=== PATIENT | male | born 1945 | race Caucasian/White ===

== ENCOUNTER → 2020-09-12 02:32 | Outpatient (CLI) | payer MEDICARE, SELFPAY ==
[2020-09-12 20:22] LABS: SARS-CoV-2 RNA PCR Negative
== END ==
PROVIDERS: PCP Family Medicine; Visit Provider Internal Medicine Gastroenterology
DX: Z01.812 Encounter for preprocedural laboratory examination (principal); Z20.822 Contact with and (suspected) exposure to COVID-19
CPT/HCPCS: C9803; U0003; U0005

== ENCOUNTER 2020-09-16 00:52 | Day surgery (SDC) | payer MEDICARE, SELFPAY ==
[2020-09-03 09:48] VITALS: BMI 25.7
--- NOTE | 2020-09-16 07:22 | PM.HPGS ---
History of Present Illness History of Present Illness Consent: Risks, benefits, and alternatives have been discussed and questions answered. Patient agrees to proceed with procedure. Chief complaint: neoplasm screening Narrative: Kirill Javier is a 75 year old male Review of Systems Review of Systems: All systems reviewed & are unremarkable except as noted in HPI and below PMFSH Past Medical History Medical History BMI 25.0-25.9,adult Hyperlipidemia Hypertension Screen for colon cancer Screening for prostate cancer Type 2 diabetes mellitus without complications Social History Social History Smoking packs per day: 1 Smoking cigarettes per day: 20.0 Years smoked: 15 Smoking pack-years: 15.00 Smoking status: Former smoker Tobacco type: cigarettes Smoking end date: 06/19/80 Alcohol intake: never Living arrangements: with family Gender identity (if verbalized by the patient): Male Spiritual care concerns: No Meds Home Medications and Allergies Home Medications Medication Instructions Recorded Confirmed Type ascorbate calcium (vitamin C) 500 1,000 mg PO DAILY 07/31/20 09/03/20 History mg tablet cholecalciferol (vitamin D3) 50 50 mcg PO DAILY 07/31/20 09/03/20 History mcg (2,000 unit) capsule cyanocobalamin (vitamin B-12) 500 500 mcg PO DAILY 07/31/20 09/03/20 History mcg tablet empagliflozin 10 mg tablet 10 mg PO DAILY 07/31/20 09/03/20 History levetiracetam 250 mg tablet 125 mg PO BID tablet 07/31/20 09/03/20 History losartan 50 mg-hydrochlorothiazide 1 tablet PO DAILY 07/31/20 09/03/20 History 12.5 mg tablet metformin 850 mg tablet 850 mg PO TID 07/31/20 09/03/20 History montelukast 10 mg tablet 10 mg PO DAILY 07/31/20 09/03/20 History gtpvzqdz-ntm-rtosy acid 300 1 tablet PO DAILY 07/31/20 09/03/20 History mcg-lycopene 600 mcg-lutein 300 mcg tablet pravastatin 40 mg tablet 40 mg PO DAILY 07/31/20 09/03/20 History sildenafil (pulm.hypertension) 20 20 mg PO DAILY tablet 07/31/20 09/03/20 History mg tablet sod picosulf 10 mg-magnes 3.5 160 ml PO BID #160 ml 08/26/20 Rx gram-citric 12 gram/160 mL oral solution coenzyme Q10 [CoQ-10] 200 mg PO DAILY 09/03/20 09/03/20 History flaxseed oil 1,000 mg PO DAILY 09/03/20 09/03/20 History glipizide 10 mg PO DAILY 09/03/20 09/03/20 History hydrochlorothiazide 12.5 mg PO DAILY 09/03/20 09/03/20 History omega 0-vpn-rej-fish oil [Fish Oil] 1,200 cap PO DAILY 09/03/20 09/03/20 History Allergies Allergy/AdvReac Type Severity Reaction Status Date / Time mold Allergy Unknown Unknown Verified 09/03/20 09:39 Dust Allergy Unknown Unknown Uncoded 09/03/20 09:39 Exam Resp: Auscultation: clear to auscultation bilaterally Cardio: Rate: regular rate Rhythm: regular rhythm GI: GI Palp: Yes Soft to palpation and No Tenderness to palpation present (GI) Assessment and Plan Assessment and plan (1) Screen for colon cancer: Code(s): Z12.11 - Encounter for screening for malignant neoplasm of colon Status: Acute Assessment and Plan: Colonoscopy with possible biopsy or polypectomy or cautery or injection of substances.
[2020-09-16 07:37] LABS: Glucose Point of Care 105 (65-105)
[2020-09-16 07:45] VITALS: BP 157/55; PULSE 79; RESP 18; TEMP 36.1; O2SAT 99; BMI 26.0
[2020-09-16] MEDS: LACTATED RINGERS 1,000 ML 150 ML IV CONT (07:55)
--- NOTE | 2020-09-16 08:13 | WPDANESEPPF ---
Anes - Initial Pre Proc Eval Procedure: Operation Date: 09/16/20 08:30 Proposed Procedures p Screening Colonoscopy - Anish Craig MD Date/Time: 09/16/20 08:13 Surgeon: Anish Craig MD Pre Op Diagnosis: neoplasm screening Patient Data Age: 75 Gender: M Height: 5 ft 9 in Weight: 80.1 kg Last Vital Signs Temp 96.9 F L 09/16/20 07:45 Pulse 79 09/16/20 07:45 Resp 18 09/16/20 07:45 BP 157/55 H 09/16/20 07:45 Pulse Ox 99 09/16/20 07:45 Allergies Allergy/AdvReac Type Severity Reaction Status Date / Time mold Allergy Unknown Unknown Verified 09/16/20 07:41 Dust Allergy Unknown Unknown Uncoded 09/16/20 07:41 Home Medications Medication Instructions Recorded Confirmed Type ascorbate calcium (vitamin C) 500 1,000 mg PO DAILY 07/31/20 09/16/20 History mg tablet cholecalciferol (vitamin D3) 50 50 mcg PO DAILY 07/31/20 09/16/20 History mcg (2,000 unit) capsule cyanocobalamin (vitamin B-12) 500 500 mcg PO DAILY 07/31/20 09/16/20 History mcg tablet empagliflozin 10 mg tablet 10 mg PO DAILY 07/31/20 09/16/20 History levetiracetam 250 mg tablet 125 mg PO BID tablet 07/31/20 09/16/20 History losartan 50 mg-hydrochlorothiazide 1 tablet PO DAILY 07/31/20 09/16/20 History 12.5 mg tablet metformin 850 mg tablet 850 mg PO TID 07/31/20 09/16/20 History montelukast 10 mg tablet 10 mg PO DAILY 07/31/20 09/16/20 History fnfudkzy-wgr-gaslg acid 300 1 tablet PO DAILY 07/31/20 09/16/20 History mcg-lycopene 600 mcg-lutein 300 mcg tablet pravastatin 40 mg tablet 40 mg PO DAILY 07/31/20 09/16/20 History sildenafil (pulm.hypertension) 20 20 mg PO DAILY tablet 07/31/20 09/16/20 History mg tablet sod picosulf 10 mg-magnes 3.5 160 ml PO BID #160 ml 08/26/20 09/16/20 Rx gram-citric 12 gram/160 mL oral solution coenzyme Q10 [CoQ-10] 200 mg PO DAILY 09/03/20 09/16/20 History flaxseed oil 1,000 mg PO DAILY 09/03/20 09/16/20 History glipizide 10 mg PO DAILY 09/03/20 09/16/20 History hydrochlorothiazide 12.5 mg PO DAILY 09/03/20 09/16/20 History omega 7-doa-mai-fish oil [Fish Oil] 1,200 cap PO DAILY 09/03/20 09/16/20 History Laboratory Tests 09/16/20 07:34 POC Capillary Glucose 105 mg/dl mg/dl (65-105) Patient hx anesthesia problems: none Family hx anesthesia problems: none [facility] Past Medical History Medical History BMI 25.0-25.9,adult Hyperlipidemia Hypertension Screen for colon cancer Screening for prostate cancer Type 2 diabetes mellitus without complications Social History Social History Smoking packs per day: 1 Smoking cigarettes per day: 20.0 Years smoked: 15 Smoking pack-years: 15.00 Smoking status: Former smoker Tobacco type: cigarettes Smoking end date: 06/19/80 Alcohol intake: never Living arrangements: with family Gender identity (if verbalized by the patient): Male Spiritual care concerns: No Anes - Eval Final PreProcedure Day of Procedure 09/16/20 08:13 Patient weight: normal Heart: regular rate and rhythm Lungs: clear to auscultation Airway: Mallampati scale class II Neurological: alert and oriented Last oral intake: >/= 8 hours ASA classification: III Emergent: no Anesthetic plan: proceed Anesthesia type and monitoring: general GIVS and standard monitoring Informed Consent: The patient's anesthetic plan and its attendant risks and benefits were discussed with the patient/family/POA. Questions were solicited and answers provided to the satisfaction of the patient/family/POA.
--- NOTE | 2020-09-16 08:14 | WPDANESEPPF ---
Anes - Initial Pre Proc Eval Procedure: Operation Date: 09/16/20 08:30 Proposed Procedures p Screening Colonoscopy - Anish Craig MD Date/Time: 09/16/20 08:14 Surgeon: Anish Craig MD Pre Op Diagnosis: neoplasm screening Patient Data Age: 75 Gender: M Height: 5 ft 9 in Weight: 80.1 kg Last Vital Signs Temp 96.9 F L 09/16/20 07:45 Pulse 79 09/16/20 07:45 Resp 18 09/16/20 07:45 BP 157/55 H 09/16/20 07:45 Pulse Ox 99 09/16/20 07:45 Allergies Allergy/AdvReac Type Severity Reaction Status Date / Time mold Allergy Unknown Unknown Verified 09/16/20 07:41 Dust Allergy Unknown Unknown Uncoded 09/16/20 07:41 Home Medications Medication Instructions Recorded Confirmed Type ascorbate calcium (vitamin C) 500 1,000 mg PO DAILY 07/31/20 09/16/20 History mg tablet cholecalciferol (vitamin D3) 50 50 mcg PO DAILY 07/31/20 09/16/20 History mcg (2,000 unit) capsule cyanocobalamin (vitamin B-12) 500 500 mcg PO DAILY 07/31/20 09/16/20 History mcg tablet empagliflozin 10 mg tablet 10 mg PO DAILY 07/31/20 09/16/20 History levetiracetam 250 mg tablet 125 mg PO BID tablet 07/31/20 09/16/20 History losartan 50 mg-hydrochlorothiazide 1 tablet PO DAILY 07/31/20 09/16/20 History 12.5 mg tablet metformin 850 mg tablet 850 mg PO TID 07/31/20 09/16/20 History montelukast 10 mg tablet 10 mg PO DAILY 07/31/20 09/16/20 History irqhfzpv-nhu-iyiux acid 300 1 tablet PO DAILY 07/31/20 09/16/20 History mcg-lycopene 600 mcg-lutein 300 mcg tablet pravastatin 40 mg tablet 40 mg PO DAILY 07/31/20 09/16/20 History sildenafil (pulm.hypertension) 20 20 mg PO DAILY tablet 07/31/20 09/16/20 History mg tablet sod picosulf 10 mg-magnes 3.5 160 ml PO BID #160 ml 08/26/20 09/16/20 Rx gram-citric 12 gram/160 mL oral solution coenzyme Q10 [CoQ-10] 200 mg PO DAILY 09/03/20 09/16/20 History flaxseed oil 1,000 mg PO DAILY 09/03/20 09/16/20 History glipizide 10 mg PO DAILY 09/03/20 09/16/20 History hydrochlorothiazide 12.5 mg PO DAILY 09/03/20 09/16/20 History omega 4-bpo-csy-fish oil [Fish Oil] 1,200 cap PO DAILY 09/03/20 09/16/20 History Laboratory Tests 09/16/20 07:34 POC Capillary Glucose 105 mg/dl mg/dl (65-105) Patient hx anesthesia problems: none Family hx anesthesia problems: none [facility] Past Medical History Medical History BMI 25.0-25.9,adult Hyperlipidemia Hypertension Screen for colon cancer Screening for prostate cancer Type 2 diabetes mellitus without complications Social History Social History Smoking packs per day: 1 Smoking cigarettes per day: 20.0 Years smoked: 15 Smoking pack-years: 15.00 Smoking status: Former smoker Tobacco type: cigarettes Smoking end date: 06/19/80 Alcohol intake: never Living arrangements: with family Gender identity (if verbalized by the patient): Male Spiritual care concerns: No Anes - Eval Final PreProcedure Day of Procedure 09/16/20 08:14 Patient weight: normal Heart: regular rate and rhythm Lungs: clear to auscultation Airway: Mallampati scale class II Neurological: alert and oriented Last oral intake: >/= 8 hours ASA classification: III Emergent: no Anesthetic plan: proceed Anesthesia type and monitoring: general GIVS and standard monitoring Informed Consent: The patient's anesthetic plan and its attendant risks and benefits were discussed with the patient/family/POA. Questions were solicited and answers provided to the satisfaction of the patient/family/POA.
[2020-09-16 08:45] VITALS: BP 82/49; PULSE 67; RESP 15; O2SAT 99
[2020-09-16 08:55] VITALS: BP 91/56; PULSE 68; RESP 17; O2SAT 100
[2020-09-16 09:05] VITALS: BP 125/64; PULSE 69; RESP 15; O2SAT 99
--- NOTE | 2020-09-16 09:21 | SUR.PHASEII ---
Awaiting pt's courier delivery driver to arrive.
== END 2020-09-16 09:42 | disposition home or self-care (01) ==
PROVIDERS: PCP Family Medicine; Visit Provider Internal Medicine Gastroenterology
PROC: 0DJD8ZZ Inspection of Lower Intestinal Tract, Via Natural or Artificial Opening Endoscopic (ICD-10-PCS; CPT 45378; principal; 2020-09-16 08:30)
DX: Z12.11 Encounter for screening for malignant neoplasm of colon (principal); I10 Essential (primary) hypertension; E78.5 Hyperlipidemia, unspecified; E11.9 Type 2 diabetes mellitus without complications; Z79.84 Long term (current) use of oral hypoglycemic drugs; Z87.891 Personal history of nicotine dependence
CPT/HCPCS: G0121; 82948; C9803; J2704; J7120; U0003; U0005

== ENCOUNTER → 2021-09-08 14:13 | Outpatient (CLI) | payer MEDICARE, SELFPAY ==
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
--- NOTE | ~2021-09-08 | XR_ITS ---
EXAMINATION: XR shoulder LT min 2V EXAM DATE: 09/08/2021 14:56 INDICATION: Shoulder pain. Chest pain. TECHNIQUE: The following left shoulder projections obtained: frontal projection with internal rotatio n, frontal projection with external rotation, Grashey, and axillary (4+ views). Comparison is made to prior examination from 01/02/2015. FINDINGS: No evidence of left shoulder rotator cuff calcific tendinosis. High riding humeral head l ikely indicating chronic rotator cuff tear. There is mild to moderate glenohumeral joint, moderate ac romioclavicular joint primary osteoarthritis. There are no acute fractures or dislocations identified . There is no subcutaneous gas. The soft tissue is unremarkable. There are no radiopaque foreign bodies. IMPRESSION: 1. Left shoulder osteoarthritis. 2. Probable chronic rotator cuff tear. Reviewed, dictated and finalized at location G.
== END ==
PROVIDERS: PCP Family Medicine; Visit Provider Nurse Practitioner Family
DX: R07.89 Other chest pain (principal); M19.012 Primary osteoarthritis, left shoulder
CPT/HCPCS: 71046; 71110; 73030

== ENCOUNTER 2022-06-22 10:51 | Emergency (ER) | payer MEDICARE, SELFPAY ==
[2022-06-22 11:00] VITALS: BP 155/70; PULSE 116; RESP 18; TEMP 37.6; O2SAT 98
[2022-06-22 11:05] VITALS: BP 155/70; PULSE 116; RESP 18; TEMP 37.6; O2SAT 98
--- NOTE | 2022-06-22 11:32 | ED.URI ---
HPI - URI/Sore Throat General Chief Complaint: Upper Respiratory Infection Stated Complaint: Cough/Weakness/Fatique Time Seen by Provider: 06/22/22 11:15 Source: patient Mode of arrival: ambulatory Limitations: no limitations History of Present Illness HPI Narrative: Mr. Javier is a 77-year-old male patient presenting to the clinic today with complaints of cough, weakness, and fever that just started today. He was here with his yesterday who tested positive for COVID. MD elicited complaint: cough, nasal congestion and other ( Weakness, fatigue) Related Data Home Medications Medication Instructions Recorded Confirmed ascorbate calcium (vitamin C) 500 1,000 mg PO DAILY 07/31/20 06/22/22 mg tablet cholecalciferol (vitamin D3) 50 50 mcg PO DAILY 07/31/20 06/22/22 mcg (2,000 unit) capsule cyanocobalamin (vitamin B-12) 500 500 mcg PO DAILY 07/31/20 06/22/22 mcg tablet (Vitamin B-12) empagliflozin 10 mg tablet 10 mg PO DAILY 07/31/20 06/22/22 (Jardiance) losartan 50 mg-hydrochlorothiazide 1 tablet PO DAILY 07/31/20 06/22/22 12.5 mg tablet metformin 850 mg tablet 850 mg PO TID 07/31/20 06/22/22 utrgzpwb-cmi-vmehf acid 300 1 tablet PO DAILY 07/31/20 06/22/22 mcg-lycopene 600 mcg-lutein 300 mcg tablet (Centrum Silver Men) pravastatin 40 mg tablet 40 mg PO DAILY 07/31/20 06/22/22 sildenafil (pulm.hypertension) 20 20 mg PO DAILY 07/31/20 06/22/22 mg tablet coenzyme Q10 100 mg capsule 200 mg PO DAILY 09/03/20 06/22/22 (CoQ-10) glipizide 10 mg tablet 10 mg PO DAILY 09/03/20 06/22/22 Allergies Allergy/AdvReac Type Severity Reaction Status Date / Time mold Allergy Unknown Unknown Verified 06/22/22 11:03 Dust Allergy Unknown Unknown Uncoded 06/22/22 11:03 Review of Systems Review of Systems: Pertinent positives per HPI. Patient denies any fever, chills, rash, headache, visual changes, dizziness, shortness of breath, chest pain, palpitations, nausea, vomiting, diarrhea, constipation, abdominal pain, or any urinary issues. PMFSH Past Medical History Medical History Bilateral leg pain BMI 25.0-25.9,adult BMI 26.0-26.9,adult Hyperlipidemia Hypertension Low vitamin B12 level Screen for colon cancer Screening for prostate cancer Type 2 diabetes mellitus without complications Vitamin D deficiency Family History Family History Father Polio Mother Diabetes mellitus Sibling Lymphoma Thyroid activity decreased Social History Social History Social History: former smoker Smoking packs per day: 1 Smoking cigarettes per day: 20.0 Years smoked: 15 Smoking pack-years: 15.00 Smoking status: Former smoker (Quit 1981) Tobacco type: cigarettes Second hand tobacco smoke exposure: No Smoking end date: 06/19/80 Alcohol intake: never Substance use: never Substance use type: does not use Additional occupation/education comments: [employer] Gender identity (if verbalized by the patient): Male Spiritual care concerns: No Comments At the time of my signature, I reviewed and agree with the nursing past medical, surgical, social, and family history. There is no relevant family history pertinent to the patient complaint. Exam Narrative: General: Well-developed, well nourished, in no apparent distress Head: Normocephalic, atraumatic Eyes: Pupils equally round and reactive to light bilaterally, EOM intact, sclera and conjunctive clear, no discharge, lids normal Ears: TMs intact and clear, ear canals clear, no drainage, grossly hearing normal. Nose: Nares patent, clear nasal discharge, no inflammation, no sinus tenderness. Mouth: Oral pharynx without lesions or masses, good dentition, MMM. 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
== END 2022-06-22 11:46 | disposition home or self-care (01) ==
PROVIDERS: Emergency Provider Nurse Practitioner Family; PCP Family Medicine
DX: B34.9 Viral infection, unspecified (principal); J06.9 Acute upper respiratory infection, unspecified; Z20.822 Contact with and (suspected) exposure to COVID-19; Z87.891 Personal history of nicotine dependence; E78.5 Hyperlipidemia, unspecified; I10 Essential (primary) hypertension; E11.9 Type 2 diabetes mellitus without complications; E55.9 Vitamin D deficiency, unspecified
CPT/HCPCS: 87426; 99213; C9803; G0463

== ENCOUNTER 2022-11-02 16:56 | Emergency (ER) | payer MEDICARE, SELFPAY ==
--- NOTE | ~2022-11-02 | US_ITS ---
EXAMINATION: US venous doppler [facility] DATE: 11/02/2022 17:25 INDICATION: Left lower limb erythema. TECHNIQUE: Grayscale ultrasound images without and with compression and Doppler ultrasound images of the left lower extremity veins were obtained. COMPARISON: None. FINDINGS: The visualized portions of left common femoral vein, profunda (deep) femoral vein, femoral vein, popl iteal vein, peroneal veins, posterior tibial veins, gastrocnemius vein and greater saphenous vein out flow are patent. IMPRESSION: 1. No deep venous thrombosis in the left lower limb. Reviewed, dictated and finalized at location A.
[2022-11-02 17:00] VITALS: BP 150/86; PULSE 82; RESP 16; TEMP 36.8; O2SAT 97
--- NOTE | 2022-11-02 18:58 | ED.EXTPRO ---
HPI - Extremity Problem General Chief complaint: Extremity Problem,Nontraumatic <Giovanna Cabral PA-C - Last Filed: 11/02/22 19:33> Stated complaint: sent by PCP for r/o DVT <Giovanna Cabral PA-C - Last Filed: 11/02/22 19:33> Time Seen by Provider: 11/02/22 18:35 <Giovanna Cabral PA-C - Last Filed: 11/02/22 19:33> History of Present Illness HPI Narrative: 77 y/o M reports for evaluation of L hamstring tightness and bruising over his distal hamstrings. Pt states 5 days ago he was picking dandelions in his yard and since then he has had tightness to his hamstring. States today his noticed bruising to his thigh which brought them to the ED. He denies lower extremity edema, fever, body aches, chills, paresthesias. He is ambulating w/o difficulty. <Giovanna Cabral PA-C - Last Filed: 11/02/22 19:33> Related Data Home medications: Home Medications Medication Instructions Recorded Confirmed ascorbate calcium (vitamin C) 500 1,000 mg PO DAILY 07/31/20 06/22/22 mg tablet cholecalciferol (vitamin D3) 50 50 mcg PO DAILY 07/31/20 06/22/22 mcg (2,000 unit) capsule cyanocobalamin (vitamin B-12) 500 500 mcg PO DAILY 07/31/20 06/22/22 mcg tablet (Vitamin B-12) empagliflozin 10 mg tablet 10 mg PO DAILY 07/31/20 06/22/22 (Jardiance) losartan 50 mg-hydrochlorothiazide 1 tablet PO DAILY 07/31/20 06/22/22 12.5 mg tablet metformin 850 mg tablet 850 mg PO TID 07/31/20 06/22/22 nistecax-rep-ldyno acid 300 1 tablet PO DAILY 07/31/20 06/22/22 mcg-lycopene 600 mcg-lutein 300 mcg tablet (Centrum Silver Men) pravastatin 40 mg tablet 40 mg PO DAILY 07/31/20 06/22/22 sildenafil (pulm.hypertension) 20 20 mg PO DAILY 07/31/20 06/22/22 mg tablet coenzyme Q10 100 mg capsule 200 mg PO DAILY 09/03/20 06/22/22 (CoQ-10) glipizide 10 mg tablet 10 mg PO DAILY 09/03/20 06/22/22 <Giovanna Cabral PA-C - Last Filed: 11/02/22 19:33> Allergies/Adverse reactions: Allergies Allergy/AdvReac Type Severity Reaction Status Date / Time mold Allergy Unknown Unknown Verified 11/02/22 19:15 Dust Allergy Unknown Unknown Uncoded 07/06/22 14:02 <Giovanna Cabral PA-C - Last Filed: 11/02/22 19:33> Review of Systems Review of Systems: CONSTITUTIONAL: Denies fever, chills EYES: Denies visual changes, redness, or discharge. ENT: Denies rhinorrhea, congestion, sore throat, or otalgia. CARDIOVASCULAR: Denies chest pain, palpitations, or edema. RESPIRATORY: Denies cough or dyspnea. GASTROINTESTINAL: Denies abdominal pain, nausea, vomiting, or diarrhea. GENITOURINARY: Denies dysuria or hematuria. SKIN: See HPI MUSCULOSKELETAL: Denies back pain, joint pain, or myalgia. NEUROLOGIC: Denies headache, numbness, dizziness, or weakness. PSYCHIATRIC: Denies anxiety or depression. <Giovanna Cabral PA-C - Last Filed: 11/02/22 19:33> [facility] Past Medical History Medical History: Medical History Bilateral leg pain BMI 25.0-25.9,adult BMI 26.0-26.9,adult Hyperlipidemia Hypertension Low vitamin B12 level Screen for colon cancer Screening for prostate cancer Type 2 diabetes mellitus without complications Vitamin D deficiency <Giovanna Cabral PA-C - Last Filed: 11/02/22 19:33> Family History Family History: Family History Father Polio Mother Diabetes mellitus Sibling Lymphoma Thyroid activity decreased <Giovanna Cabral PA-C - Last Filed: 11/02/22 19:33> Social History Social History: Social History Social History: former smoker Smoking packs per day: 1 Smoking cigarettes per day: 20.0 Years smoked: 15 Smoking pack-years: 15.00 Smoking status: Former smoker (Quit 1981) Tobacco type: cigarettes Second hand tobacco smoke exposure: No Smoking end date: 0
== END 2022-11-02 19:56 | disposition home or self-care (01) ==
PROVIDERS: Emergency Provider Physician Assistant; PCP Family Medicine
DX: S76.812A Strain of other specified muscles, fascia and tendons at thigh level, left thigh, initial encounter (principal); E78.5 Hyperlipidemia, unspecified; I10 Essential (primary) hypertension; E11.9 Type 2 diabetes mellitus without complications; Z87.891 Personal history of nicotine dependence; X58.XXXA Exposure to other specified factors, initial encounter
CPT/HCPCS: 93971; 99284

== ENCOUNTER 2023-03-02 13:25 | Outpatient (CLI) | payer MEDICARE, SELFPAY ==
--- NOTE | ~2023-03-02 | US_ITS ---
US scrotum doppler INDICATION: Right testicular pain TECHNIQUE: Testicular sonogram utilizing grayscale and color Doppler FINDINGS: The testes are normal in size and appearance. No focal lesions are seen. The right testes measures 3.6 x 1.4 x 2.3 cm centimeters, and the left testis measures 3 x 1.5 x 2.2 cm cm. There are left testicular cysts measuring 6 mm. There is normal vascular flow to both testes. There is a right epididymal cyst measuring 5 mm. There is a right varicocele. IMPRESSION: 1. Right varicocele. Reviewed, dictated and finalized at location L. IMPRESSION: 1. Right varicocele.
--- NOTE | ~2023-03-02 | XR_ITS ---
EXAMINATION: XR knee RT min 4V DATE: 03/02/2023 14:09 INDICATION: Right knee pain TECHNIQUE: Four views of the right knee were obtained. COMPARISON: None. FINDINGS: Alignment is normal. No fracture or osteochondral lesion. There is tricompartmental osteoar thritis, moderate in the lateral and patellofemoral compartments. There is a small knee joint effusio n. Soft tissues are unremarkable. IMPRESSION: 1. Osteoarthritis and small knee joint effusion without acute osseous abnormality. Reviewed, dictated and finalized at location F. IMPRESSION: 1. Osteoarthritis and small knee joint effusion without acute osseous abnormali ty.
== END 2023-03-02 13:26 | disposition home or self-care (01) ==
PROVIDERS: PCP Family Medicine; Visit Provider Nurse Practitioner Family
DX: N50.811 Right testicular pain (principal); S89.91XA Unspecified injury of right lower leg, initial encounter; X58.XXXA Exposure to other specified factors, initial encounter; M17.11 Unilateral primary osteoarthritis, right knee; I86.1 Scrotal varices
CPT/HCPCS: 73564; 76870; 93976

== ENCOUNTER 2023-12-06 08:51 | Outpatient (CLI) | payer MEDICARE, SELFPAY ==
--- NOTE | ~2023-12-06 | XR_ITS ---
XR hip LT 2V w AP pelvis Ordering provider: Jenna Dejesus PAC History: . PAIN, POSTERIOR. NKI . Comparison: None. FINDINGS: BONES: No acute fracture or dislocation. Healed fracture in the proximal right femur. HIP JOINT SPACES: Bilateral hip osteoarthritic changes SACROILIAC JOINT SPACES/LUMBAR SPINE: The sacroiliac joint spaces are normal. Mild degenerative cruz es of the visualized lower lumbar spine. PUBIC SYMPHYSIS: Normal. SOFT TISSUES: Normal. IMPRESSION: No acute osseous abnormality pelvis and left hip. Reviewed, dictated and finalized at location A.
== END 2023-12-06 08:52 | disposition home or self-care (01) ==
LOC: ANHIMG 08:55
PROVIDERS: PCP Family Medicine; Visit Provider Physician Assistant Medical
DX: M25.552 Pain in left hip (principal)
CPT/HCPCS: 73502

== ENCOUNTER 2023-12-20 11:55 | Outpatient (CLI) | payer MEDICARE, SELFPAY ==
--- NOTE | ~2023-12-20 | US_ITS ---
EXAMINATION: US scrotum doppler DATE: 12/20/2023 13:02 INDICATION: Right-sided testicular pain TECHNIQUE: Testicular sonogram utilizing grayscale and Doppler COMPARISON: 03/02/2023 FINDINGS: The right testis measures 2.8 x 1.8 x 2.3 cm. The left testis measures 2.9 x 1.3 x 2.1 cm. Symmetric normal grayscale appearance to both testes. There is normal vascular flow to both testes. There is a 5 mm anechoic right epididymal head cyst and larger 1.2 cm hypoechoic left epididymal head cyst. The bilateral epididymides are otherwise normal with normal vascular flow. There is no hydrocele or left- sided varicocele. IMPRESSION: 1. Unchanged atypical unilateral right varicocele. Could consider CT or ultrasound of the abdomen to assess for any obstructing lesions along the more proximal right gonadal vein. 2. Bilateral epididymal head cysts. Otherwise normal testes and epididymides. Reviewed, dictated and finalized at location B. IMPRESSION: 1. Unchanged atypical unilateral right varicocele. Could consider CT or ultras ound of the abdomen to assess for any obstructing lesions along the more proxim al right gonadal vein. 2. Bilateral epididymal head cysts. Otherwise normal testes and epididymides.
== END 2023-12-20 11:56 | disposition home or self-care (01) ==
LOC: ANHIMG 12:01
PROVIDERS: PCP Family Medicine; Visit Provider Nurse Practitioner Family
DX: I86.1 Scrotal varices (principal); N50.3 Cyst of epididymis; N44.2 Benign cyst of testis; N50.811 Right testicular pain
CPT/HCPCS: 76870; 93976

== ENCOUNTER 2024-05-08 12:49 | Outpatient (CLI) | payer MEDICARE, SELFPAY ==
--- NOTE | ~2024-05-08 | XR_ITS ---
EXAMINATION: XR hand RT 2V DATE: 05/08/2024 13:08 INDICATION: Primary osteoarthritis, right hand. TECHNIQUE: 2 views of right hand were obtained. COMPARISON: None. FINDINGS: Alignment is normal. No fracture. There is mild osteoarthritis of first carpometacarpal cleo nt and some of the interphalangeal joints. There is severe osteoarthritis of first interphalangeal lori int and second and fifth distal interphalangeal joints. IMPRESSION: 1. Polyarticular osteoarthritis. Reviewed, dictated and finalized at location A. [employer]
== END 2024-05-08 12:50 | disposition home or self-care (01) ==
PROVIDERS: PCP Family Medicine; Visit Provider Nurse Practitioner Adult Health
DX: M19.041 Primary osteoarthritis, right hand (principal)
CPT/HCPCS: 73120

== ENCOUNTER 2024-09-10 09:48 | Outpatient (CLI) | payer MEDICARE, SELFPAY ==
--- NOTE | ~2024-09-10 | XR_ITS ---
EXAMINATION: XR hip LT 2V w AP pelvis DATE: 09/10/2024 10:06 INDICATION: Left hip pain. TECHNIQUE: An anteroposterior view of the pelvis and 2 views of left hip were obtained. COMPARISON: Pelvis and left hip radiograph 12/06/2023 FINDINGS: Alignment is normal. Partially visualized is an expansile lesion of right femoral diaphysis . There is moderate right hip osteoarthritis and mild left hip osteoarthritis. There is mild lumbar s pondylosis. IMPRESSION: 1. Moderate right hip osteoarthritis and mild left hip osteoarthritis. 2. Partially visualized expansile lesion of right femoral diaphysis. This finding may be an old heale d fracture. There is no history of fracture, right femur radiographs are recommended. Reviewed, dictated and finalized at location [facility]. IMPRESSION: 1. Moderate right hip osteoarthritis and mild left hip osteoarthritis. 2. Partially visualized expansile lesion of right femoral diaphysis. This findi ng may be an old healed fracture. There is no history of fracture, right femur radiographs are recommended.
== END 2024-09-10 09:49 | disposition home or self-care (01) ==
PROVIDERS: PCP Family Medicine; Visit Provider Physician Assistant Medical
DX: M16.0 Bilateral primary osteoarthritis of hip (principal); M89.8X5 Other specified disorders of bone, thigh
CPT/HCPCS: 73502

== ENCOUNTER 2025-02-06 08:19 | Outpatient (CLI) | payer MEDICARE, SELFPAY ==
--- NOTE | ~2025-02-06 | MR_ITS ---
MRI of the lumbar spine Clinical History: Spinal stenosis Technique: Axial T2-weighted images, and sagittal T1-weighted, T2-weighted, and T2 fat-sat images were acquired. Findings: There is no acute fracture or subluxation of the lumbar spine. Vertebral bodies maintain normal height and line. No bone marrow signal abnormality seen. At L1-L2, there is no disc bulge or herniation. There is mild to moderate facet arthropathy. No central canal stenosis or neural foraminal narrowing. At L2-L3, there is diffuse disc bulge with moderate to advanced facet arthropathy. There is severe spinal canal stenosis/thecal sac compression. There is moderate to advanced left neural foraminal narrowing, and moderate right neural foraminal narrowing. L3-L4, there is mild disc bulge with moderate facet arthropathy. There is mild central canal stenosis. There is mild bilateral neural foraminal narrowing. At L4-L5, there is disc bulge with moderate facet arthropathy. There is mild central canal stenosis. There is moderate to advanced right neural foraminal narrowing, and mild left neural foraminal narrowing. At L5-S1, there is mild disc bulge with moderate facet arthropathy. No central canal stenosis. There is mild bilateral neural foraminal narrowing. Paravertebral soft tissues are unremarkable. Impression: Severe degenerative spondylosis at L2-L3, as detailed above. [id number] degenerative changes in the remainder of the lumbar spine, as above. Reviewed, dictated and finalized at [facility]. Impression: Severe degenerative spondylosis at L2-L3, as detailed above. [id number] degenerative changes in the remainder of the lumbar spine, as above.
== END 2025-02-06 08:20 | disposition home or self-care (01) ==
LOC: MICIMG 08:21
PROVIDERS: PCP Family Medicine; Visit Provider Orthopaedic Surgery
DX: M47.816 Spondylosis without myelopathy or radiculopathy, lumbar region (principal)
CPT/HCPCS: 72148

== ENCOUNTER 2025-05-22 10:00 | Outpatient (RCR) | payer MEDICARE, SELFPAY ==
--- NOTE | 2025-04-03 16:19 | OPREHPOC ---
Outpatient Therapy Plan of Care This is a Multidisciplinary Plan of Care that may contain components documented by all disciplines (PT, OT, and ST.) PT Problem 1 PT Problem #1 Knowledge Deficit PT Goal 1 Goal / Goal Update *independent with HEP Target Visit 10 PT Problem 2 PT Problem #2 Pain PT Goal 1 Goal / Goal Update 1* pt report pain rating at worst of 3/10 2* radicular pain at worst to knees Target Visit 10 PT Problem 3 PT Problem #3 Impaired Flexibility PT Goal 1 Goal / Goal Update increase hamstring length, to decrease pull on spine with supine SLR to 40' 1* R 2* L Target Visit 10 PT Problem 4 PT Problem #4 Impaired Strength PT Goal 1 Goal / Goal Update 1* pt transfer sit to/from stand without use of UE x 5 reps 2* pt able to stand upright without assistive device x 60 seconds Target Visit 10 PT Problem 5 PT Problem #5 Impaired Functional Mobility PT Goal 1 Goal / Goal Update 1* 5 reps sit/stand time of 16 seconds 2* 2 minute walking test distance, with wheeled walker, 450' Target Visit 10
--- NOTE | 2025-04-03 16:19 | PTOPEVAL1 ---
Assessment and note entered by Jaclyn Brown, PT Evaluation Information Assessment Status Evaluation ICD-10 Condition Codes (PT) Pain in low back M54.50,Radiculopathy, cervical M54.13,Radiculopathy, lumbar region M54.16, Difficulty Walking R26.2,Abnormalities of gait and mobility R26.9 Onset October 2024 Subjective Information more sciatica pain about October; less activity and exercises on stationary bike due to more pain PT in the past for back at another facility; manual therapy helped; have not had aquatic therapy. under care of pain management--have talked about injections, but not scheduled for it; trying to decide if going to do or not; --------- activity: home with , who is deaf; use wheeled walker or cane in home and wheeled walker for distances/going out of home; is independent with self and in home light tasks; goal: walk better, get stronger and not have to use the wheeled walker Reported Pain Level Pain Score 2: Self Report Additional Pain Score Comments pain range in the past week of 2-5/10; bilateral low back, posterior LEs: constant to mid thigh and intermittent to calves increase pain: walking/standing tolerance 15 minutes decrease pain: sit, rest, avoid things that hurt his back, massage mat that he lies on Assessment PT Clinical Summary Kirill has the diagnosis of lumbar radiculopathy and stenosis. Radicular pain in to both legs, to mid thigh constant and intermittent to calves. Back index self rating of 24% limitation in activity level. He uses a rollator or cane for walking. And is at home with his . With the evaluation: poor standing posture with flexion of trunk and hips; with standing uptight, pain increases; tightness of hamstrings bilateral ; decreased R knee flexion of 100', due to previous injury and surgery; decreased strength of both legs; sit/stand with use of 1 UE, 5 reps in 19 seconds with decreased eccentric control; 2 minute walking test distance of 365' with rollator . Skilled PT services are indicated for modalities to decrease pain, therapeutic exercises on land and in the water, to increase trunk and LE strength and flexibility with education for HEP and posture/body mechanics. Plan of Care Interventions Aquatic Therapy,Electrical Stimulation,Gait Training,Hot Pack/Cold Pack,Manual Therapy, Mechanical Traction,Neuro Re-education,Patient/ Caregiver Education,Therapeutic Activities, Therapeutic Exercise,Ultrasound PT Services Indicated Yes Treatment Frequency and 1-2x/wk for 10 visits Duration These treatments will address the objective and functional deficits as defined above. The patient will be advanced safely and appropriately in order for the patient to progress towards his/her prior level of function. Additional exercises will be introduced and as well as a comprehensive home exercise program upon discharge, if needed, ?to ensure carryover of functional gains achieved in the clinic. This treatment plan has been reviewed and agreement upon by the patient.
--- NOTE | 2025-05-22 10:58 | OPREHPOC ---
Outpatient Therapy Plan of Care This is a Multidisciplinary Plan of Care that may contain components documented by all disciplines (PT, OT, and ST.) PT Problem 1 PT Problem #1 Knowledge Deficit PT Goal 1 Goal / Goal Update *independent with HEP 05-21-25 d/c goal met Target Visit 10 Progress Met PT Problem 2 PT Problem #2 Pain PT Goal 1 Goal / Goal Update 1* pt report pain rating at worst of 3/10 2* radicular pain at worst to knees 05-21-25 d/c goal 2 met; #1 is 5 Target Visit 10 Progress Partially Met PT Problem 3 PT Problem #3 Impaired Flexibility PT Goal 1 Goal / Goal Update increase hamstring length, to decrease pull on spine with supine SLR to 40' 1* R 2* L 05-21-25 d/c goal 1 met; #2 is 30' Target Visit 10 Progress Partially Met PT Problem 4 PT Problem #4 Impaired Strength PT Goal 1 Goal / Goal Update 1* pt transfer sit to/from stand without use of UE x 5 reps 2* pt able to stand upright without assistive device x 60 seconds 05-21-25 d/c goals met Target Visit 10 Progress Met PT Problem 5 PT Problem #5 Impaired Functional Mobility PT Goal 1 Goal / Goal Update 1* 5 reps sit/stand time of 16 seconds 2* 2 minute walking test distance, with wheeled walker, 450' 05-21-25 d/c goals not met; #1 is 31 seconds; #2 is 175' Target Visit 10
--- NOTE | 2025-05-22 10:58 | PTOPDC ---
Assessment and note entered by Jaclyn Brown, PT Assessment Status Discharge ICD-10 Condition Codes (PT) Pain in low back M54.50,Radiculopathy, cervical M54.13,Radiculopathy, lumbar region M54.16, Difficulty Walking R26.2,Abnormalities of gait and mobility R26.9 Onset October 2024 Subjective Information back is better, pain is less; doing the exercises at home; in the house, do not use the cane when going a few steps only, otherwise use the cane or wheeled walker when going farther distances; tired today, have had some sinus issues; sometimes with coughing-- feel it all the way down his back to front of hips; Reported Pain Level Pain Score Self Report Additional Pain Score Comments pain range in the past week of 0-5/10; pressure in buttocks and upper thighs R > L; not really any pain in low back; increase pain: walking/standing tolerance 15 minutes decrease pain: sit, rest, avoid things that hurt his back, massage mat that he lies on Assessment PT Clinical Summary Kirill has received a total of 9 PT sessions. With today's assessment, compared to initial evaluation: pain rating 2-5/10 to 0-5/10; radicular pain to bilateral LE to calves and now to posterior mid thigh; self assessment with back index rating 24% to 16% limitation in activity level; hamstring length with supine SLR R is increased to 40' and L is same at 30'; 5 reps sit /stand time with use of 1 UE 19 seconds and now 31 seconds; 2 minute walking test distance with 4 wheeled walker 365' to 2 wheeled walker 175' and with small base quad cane 170'; education completed for HEP and pain management with activity/rest balance, use of wheeled walker for community distances. The goals were partially met. Discharge PT services. He is to continue with HEP and he discussed going to [facility] for water exercises. Plan of Care PT Services Indicated No
== END 2025-05-22 11:36 | disposition home or self-care (01) ==
LOC: ANHPT 10:00
PROVIDERS: PCP Family Medicine; Visit Provider Nurse Practitioner Adult Health
DX: M48.061 Spinal stenosis, lumbar region without neurogenic claudication (principal); M47.816 Spondylosis without myelopathy or radiculopathy, lumbar region; M54.16 Radiculopathy, lumbar region; M48.02 Spinal stenosis, cervical region; M54.32 Sciatica, left side
CPT/HCPCS: 97110; 97113; 97140; 97161; 97530